=== PATIENT | female | born 1995 | race Caucasian/White ===

== ENCOUNTER 2020-11-05 21:15 | Emergency (ER) | payer SELFPAY ==
[~2020-11-05] VITALS: Ht 165.1 cm; Wt 180.0 kg
[2020-11-05 21:15] VITALS: BP 143/97
--- NOTE | 2020-11-05 21:35 | PHYS DOC ---
Adult General Chief Complaint Chief Complaint: ANIMAL BITE HPI HPI Patient is a healthy 25-year-old female presenting for dog bite. Patient reports being bit by her own pet, a large female pit bull which is fully vaccinated as well. States fireworks were going off and her dog got spooked, she was trying to calm down her dog when it bit her once on her right hand. She suffered puncture wounds to her palm, 1 on the ventral portion of her hand in addition to x1 puncture on the dorsal portion of her thumb. She has focal pain to right hand but has full motor, sensory function, no other neurologic deficits reported. She is presenting for ongoing pain and potential need for laceration repair. Her Tdap is out of date. Police have been contacted to file a report Review of Systems Review of Systems Fourteen body systems of review of systems have been reviewed. See HPI for pertinent positives and negative responses, other choi all other systems are negative, non-pertinent or non-contributory Physical Exam Physical Exam Constitutional: Well developed, well nourished, no acute distress, non-toxic appearance. HENT: Normocephalic, atraumatic, bilateral external ears normal, oropharynx moist, no oral exudates, nose normal. Eyes: PERRLA, EOMI, conjunctiva normal, no discharge. Neck: Normal range of motion, no tenderness, supple, no stridor. Cardiovascular: Heart rate regular, sinus rhythm, no murmurs rubs or gallops Lungs & Thorax: Bilateral breath sounds clear to auscultation Abdomen: Bowel sounds normal, soft, no tenderness, no masses, no pulsatile masses. Nonsurgical abdomen, no peritoneal signs Skin: Warm, dry, no erythema, no rash. Back: No tenderness, no CVA tenderness. Extremities: No cyanosis, no clubbing, ROM intact, no edema. Bilateral hands unless otherwise noted: Sensation: SILT in FF/IF dorsal, proximal (radial), SF tip (ulnar), IF volar tip (median) Motor: + Thumbs Up (radial), OK sign (median), X with 2nd 3rd fingers (ulnar) Flexion & Extension 1-5 against resistance, Wrist/finger extension off table (radial), Finger AB/AD-duction (ulnar), Thumb to pinky (median). Isolation of each digit Index F: FDS, FDP, extension intact with PROM against resistance. No pain on movement. RDN/UDN intact. 2 pt discrimination intact. CR < 2s. Soft compartment. No gross deformity. Middle F: FDS, FDP, extension intact with PROM against resistance. No pain on movement. RDN/UDN intact. 2 pt discrimination intact. CR < 2s. Soft compartment. No gross deformity Ring F: FDS, FDP, extension intact with PROM against resistance. No pain on movement. RDN/UDN intact. 2 pt discrimination intact. CR < 2s. Soft compartment. No gross deformity Short F: FDS, FDP, extension intact with PROM against resistance. No pain on movement. RDN/UDN intact. 2 pt discrimination intact. CR < 2s. Soft compartment. No gross deformity Thumb: FPL, EPL, EPB, APL intact per routine. RDN/UDN intact per routine. CR < 2s. X1 mild puncture wound on dorsal portion of the thumb without obvious abnormalities or retained foreign body. Compartments soft. Patient has x1 puncture wound on ventral portion of palm 1 cm in length without obvious tendon or muscle belly involvement, additional 3 mm puncture wound on dorsal portion of hand again without obvious foreign body, muscle belly or tendon involvement Neurologic: Alert and oriented X 3, grossly normal motor & sensory function, no focal deficits noted. Psychologic: Tearful affect, judgement normal, anxious mood Current Patient Data Vital Signs Vital Signs Date Time Temp Pulse Resp B/P (MAP) Pulse Ox O2 Delivery O2 Flow Rate FiO2 11/05/20 21:50 18 97 Room Air 11/05/20 21:15 98.4 120 20 143/97 (112) 96 Room Air EKG EKG [] Radiology/Procedures Radiology/Procedures EXAM: PA, oblique and lateral views right hand DATE: 11/05/2020 9:47 PM INDICATION: Reason: dog bite / Spl. 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 No acute fracture or dislocation is seen on today's examination. Electronically signed by: Yuan Siddiqui MD (11/05/2020 10:12 PM) [facility] Heart Score HEART Score for Chest Pain: HEART Score for Chest Pain Response (Comments) Value History Slighlty/Non-Suspicious 0 Age < 45 0 Risk Factors No Risk Factors 0 Total 0 Risk Factors: Risk Factors: DM, Current or recent (<one month) smoker, HTN, HLP, family history of CAD, obesity. Risk Scores: Risk Factors: DM, Current or recent (<one month) smoker, HTN, HLP, family history of CAD, obesity. Course & Med Decision Making Course & Med Decision Making Discussed with the patient all findings and diagnostic testing. I discussed most likely diagnosis of puncture wounds status post dog bite with x2 separate sites of hand requiring suture repair. I discussed ongoing supportive care practices for sutures and prescribed doxycycline antibiotic for infection prevention status post dog bite. Police were contacted while in ER, it is patient's own dog, it will be observed, no indication for rabies prophylaxis at present. Patient's Tdap updated this visit. I stressed need for close outpatient follow- up to review today's ER visit for suture removal in upcoming 7 to 10 days time. Strict return precautions were also discussed at length with good understanding by patient. Patient voiced understanding and agreement with the plan. Patient knows to come back for repeat evaluation if concerning signs or symptoms present prior to outpatient follow-up. Hemodynamically stable, ambulatory and well- appearing at time of disposition. Dragon Disclaimer Dragon Disclaimer This electronic medical record was generated, in whole or in part, using a voice recognition dictation system. Laceration Repair Lac Repair Laceration #1: 1 centimeter linear wound on palmar surface of hand Laceration #2: 6 mm horizontal wound on ventral portion of hand A time out was undertaken to determine that this was the correct patient and the correct procedure for this patient. The patients laceration was prepped and cleansed in the usual fashion. Previously applied LAT cream was removed It was then copiously irrigated with normal saline with high pressure and high volume. The wound was explored in a clear and bloodless field to the base of the wound. There was no evidence of underlying fracture or foreign body. X2 simple interrupted sutures were placed in a simple interrupted fashion to close laceration #1 X1 simple interrupted suture was placed in simple interrupted fashion to close laceration #2 All suture materials used were 5.0 nonabsorbable Excellent care was taken to achieve maximal cosmesis. The patient tolerated this procedure well there were no observed nor reported complications. Departure Departure: Impression: Primary Impression: Dog bite Additional Impression: Puncture wound of hand, right Disposition: 01 DC HOME SELF CARE/HOMELESS Condition: IMPROVED Referrals: PCP,NO (PCP) Patient Instructions: Animal Bite, Laceration Care, Adult Additional Instructions: You were seen for a laceration suffered from a dog bite. Keep the area clean and dry. You should return to the ED or your PCP office to get your x3 simple interrupted sutures removed in 7-10 days. Return to the ED immediately if you develop any signs of infection like increased pain, redness, fever, or purulent (pus) drainage. Do not take baths, submerge the wound, or use a hot tub until your stitches are removed and the wound is healed. Please take prescribed antibiotics as instructed to completion. It was a pleasure to take care of you and I wish you a speedy recovery Scripts Doxycycline Hyclate (DOXYCYCLINE HYCLATE) 100 Mg Capsule 1 CAP PO BID for dog bite, #13 CAP Prov: TONO STREET DO 11/05/20 Problem Qualifiers [address] DO Nov 05, 2020 21:35
[2020-11-05] MEDS ORDERED: DOXY100C2 PO (21:38)
[2020-11-05] MEDS ORDERED: HYDROcodone/APAP 7.5/325MG 1 TAB TABLET PO ONE (22:00)
[2020-11-05] MEDS ORDERED: DOXYCYCLINE HYCLATE 100 MG TABLET PO ONE (22:00)
[2020-11-05] MEDS ORDERED: LIDOCAINE/EPI/TETRACAINE TOPICAL GEL 3 ML. TP ONE (22:00)
--- NOTE | 2020-11-05 22:14 | RAD ---
EXAM: PA, oblique and lateral views right hand DATE: 11/05/2020 9:47 PM INDICATION: Reason: dog bite / Spl. 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 No acute fracture or dislocation is seen on today's examination. Electronically signed by: Yuan Siddiqui MD (11/05/2020 10:12 PM) [facility]UCK
[2020-11-05] MEDS ORDERED: DIPH,PERTUSS(ACELL),TET VAC/PF 0.5 ML SYRINGE. VAX IM ONE (22:30)
== END 2020-11-05 22:50 | disposition home or self-care (01) ==
LOC: ER 21:15
DX: S61.411A Laceration without foreign body of right hand, initial encounter (principal); W54.0XXA Bitten by dog, initial encounter; Y93.89 Activity, other specified; Y92.89 Other specified places as the place of occurrence of the external cause; Y99.8 Other external cause status
CPT/HCPCS: 12001; 73130; 90471; 90715; 99283